=== PATIENT | female | born 1990 | race African-American/Black ===

== ENCOUNTER 2018-01-20 21:19 | Emergency (ER) | payer MEDICAID ==
[~2018-01-20] VITALS: Ht 165.1 cm; Wt 89.4 kg
[2018-01-20 21:51] VITALS: BP 132/94
[2018-01-20] MEDS ORDERED: cefTRIAXone SOD 1,000 MG VL IM ONE (23:45)
[2018-01-20] MEDS ORDERED: methylPREDNISolone SOD SUCC 125 MG/2 ML VL IM ONE (23:45)
[2018-01-21] MEDS ORDERED: TETANUS-DIPTH-ACEL PERTUSSIS 0.5ML SYRG IM ONE (00:15)
== END 2018-01-21 01:04 | disposition home or self-care (01) ==
LOC: ER 21:19
DX: L03.113 Cellulitis of right upper limb (principal); W57.XXXA Bitten or stung by nonvenomous insect and other nonvenomous arthropods, initial encounter; Y93.89 Activity, other specified; Y99.8 Other external cause status; Y92.89 Other specified places as the place of occurrence of the external cause
CPT/HCPCS: 90471; 90715; 96372; 99284; J0696; J2930

== ENCOUNTER 2018-04-29 20:08 | Emergency (ER) | payer SELFPAY ==
[~2018-04-29] VITALS: Ht 165.1 cm; Wt 93.0 kg
[2018-04-29 20:21] VITALS: BP 121/74
[2018-04-29 22:54] LABS: Urine Bacteria NONE SEEN /hpf (None Seen); Urine Blood Negative /uL (Negative); Urine Mucus FEW (None Seen); Urine Specific Gravity 1.029 (1.001-1.035); Urine WBC 1 /hpf (0 - 5)
== END 2018-04-30 00:52 | disposition home or self-care (01) ==
LOC: ER 20:08 → EDBD 20:08 → ER 04-30 00:41
DX: S09.90XA Unspecified injury of head, initial encounter (principal); X58.XXXA Exposure to other specified factors, initial encounter; Y93.89 Activity, other specified; Y99.8 Other external cause status; Y92.89 Other specified places as the place of occurrence of the external cause
CPT/HCPCS: 70450; 70486; 81001; 81025

== ENCOUNTER 2019-06-29 23:45 | Observation (INO) | payer MEDICAID ==
[~2019-06-29] VITALS: Ht 165.1 cm; Wt 104.3 kg
[2019-06-30] MEDS ORDERED: TERBUTALINE SULFATE 1 MG/ML 1ML VIAL SC SCH (00:45)
[2019-06-30] MEDS ORDERED: TERBUTALINE SULFATE 1 MG/ML 1ML VIAL SC ONE (00:46)
[2019-07-01] MEDS ORDERED: NIF10C GT (04:47)
== END 2019-06-30 01:35 | disposition home or self-care (01) | DRG 566 ==
LOC: LDRP 23:45
PROVIDERS: ADMIT Obstetrics & Gynecology; ATTEND Obstetrics & Gynecology
DX: O62.9 Abnormality of forces of labor, unspecified (principal); Z3A.29 29 weeks gestation of pregnancy
CPT/HCPCS: 59025; 81002; 96372; G0378; J3105

== ENCOUNTER 2019-07-01 02:38 | Observation (INO) | payer MEDICAID ==
[2019-07-01] MEDS ORDERED: NIF10C GT (04:47)
== END 2019-07-01 04:50 | disposition other institution (70) | DRG 563 ==
LOC: LDRP 02:38
PROVIDERS: ADMIT Specialist; ATTEND Specialist
DX: O60.03 Preterm labor without delivery, third trimester (principal); O99.89 Other specified diseases and conditions complicating pregnancy, childbirth and the puerperium; R10.9 Unspecified abdominal pain; R07.89 Other chest pain; Z3A.29 29 weeks gestation of pregnancy
CPT/HCPCS: 59025; 81002; G0378

== ENCOUNTER 2019-07-01 05:05 | Emergency (ER) | payer MEDICAID ==
[~2019-07-01] VITALS: Ht 165.1 cm; Wt 110.7 kg
[~2019-07-01 05:05] MED LIST: NIF10C GT
[2019-07-01 07:04] LABS: Basophils # (auto) 0 uL; Basophils % (auto) 0.5 % (0.0-2.0); Eosinophils # (auto) 0.1 uL; Eosinophils % (auto) 1.3 % (0.0-7.0); Hematocrit 34.1 % (36.0-46.0); Hemoglobin 11.2 g/dL (12.2-16.2); Lymphocytes # (auto) 1.6 uL; Lymphocytes % (auto) 16.8 % (10.0-50.0); Mean Corpuscular Hemoglobin 28.7 pg (28.0-32.0); Mean Corpuscular Hgb Conc. 32.9 g/dL (32.0-36.0); Mean Corpuscular Volume 87.3 fL (80.0-100.0); Monocytes # (auto) 0.9 uL; Neutrophils # (auto) 6.7 uL; Neutrophils % (auto) 71.4 % (37.0-80.0); Platelet Count (auto) 191 10^3/uL (140-450); Red Blood Cells 3.91 10^6/uL (4.0-5.20); Red Cell Distribution Width 14.2 % (11.8-14.3); White Blood Cell 9.4 10^3/uL (4.4-10.8)
[2019-07-01] MEDS ORDERED: SODIUM CHLORIDE 0.9% 1,000 ML IV ONE (07:04)
[2019-07-01] MEDS ORDERED: FOLIC ACID 1 MG TAB PO ONE (07:15)
[2019-07-01 07:23] LABS: Alanine Aminotransferase 22 U/L (13-56); Albumin 2.1 g/dL (3.4-5.0); Anion Gap 8 (5-15); Aspartate Aminotransferase 17 U/L (15-37); BUN/Creatinine Ratio 12.7; Blood Urea Nitrogen 8 mg/dL (7-18); Calcium 7.9 mg/dL (8.5-10.1); Carbon Dioxide 23 mmol/L (21-32); Chloride 106 mmol/L (98-107); GFR African American 143 mL/min; GFR Non-African American 118 mL/min; Glucose 80 mg/dL (74-106); Magnesium 1.8 mg/dL (1.6-2.6); Potassium 3.8 mmol/L (3.5-5.1); Sodium 137 mmol/L (136-145)
[2019-07-01 07:28] LABS: Alkaline Phosphatase 75 U/L (45-117); Bilirubin, Total 0.7 mg/dL (0.2-1.0)
[2019-07-01 07:29] LABS: INR 0.99 (0.9-1.15); Partial Thromboplastin Time 28.8 sec (23.64-32.05)
[2019-07-01 08:00] VITALS: BP 116/69
== END 2019-07-01 10:12 | disposition home or self-care (01) ==
LOC: ER 05:05
DX: O26.893 Other specified pregnancy related conditions, third trimester (principal); O99.343 Other mental disorders complicating pregnancy, third trimester; E86.0 Dehydration; F41.9 Anxiety disorder, unspecified; Z3A.30 30 weeks gestation of pregnancy
CPT/HCPCS: 36415; 80053; 83735; 84484; 84702; 85025; 85610; 85730; 93005; 96360; 96361; 99284; J7030

== ENCOUNTER 2019-07-05 09:10 | Observation (INO) | payer MEDICAID ==
[2019-07-05] MEDS ORDERED: PREN27TA7 PO (10:34)
== END 2019-07-05 11:05 | disposition home or self-care (01) | DRG 566 ==
LOC: LDRP 09:10
PROVIDERS: ADMIT Obstetrics & Gynecology; ATTEND Obstetrics & Gynecology
DX: O24.410 Gestational diabetes mellitus in pregnancy, diet controlled (principal); O60.03 Preterm labor without delivery, third trimester; Z3A.30 30 weeks gestation of pregnancy
CPT/HCPCS: 59025; 76818; 81002; G0378

== ENCOUNTER 2019-07-14 09:05 | Observation (INO) | payer MEDICAID ==
[~2019-07-14 09:05] MED LIST changes: +PREN27TA7 PO
== END 2019-07-14 10:55 | disposition home or self-care (01) | DRG 563 ==
LOC: LDRP 09:05
PROVIDERS: ADMIT Obstetrics & Gynecology; ATTEND Obstetrics & Gynecology
DX: O60.03 Preterm labor without delivery, third trimester (principal); O24.419 Gestational diabetes mellitus in pregnancy, unspecified control; O26.893 Other specified pregnancy related conditions, third trimester; R51 Headache; Z3A.31 31 weeks gestation of pregnancy
CPT/HCPCS: 59025; 76818; 81002; 82948; 82962; G0378

== ENCOUNTER 2021-06-07 04:54 | Emergency (ER) | payer MEDICAID ==
[~2021-06-07] VITALS: Ht 165.1 cm; Wt 103.4 kg
[2021-06-07] MEDS ORDERED: IBUPROFEN 600 MG TAB PO ONE (05:15)
[2021-06-07 06:46] LABS: Urine Bacteria FEW /hpf (None Seen); Urine Blood Negative /uL (Negative); Urine Mucus FEW (None Seen); Urine Specific Gravity 1.031 (1.001-1.035); Urine WBC 11 /hpf (0 - 5)
[2021-06-07 07:27] LABS: Basophils # (auto) 0 10 ^3/uL (0-0.2); Basophils % (auto) 0.8 % (0.0-2.0); Eosinophils # (auto) 0.2 10 ^3/uL (0-0.8); Eosinophils % (auto) 3.1 % (0.0-7.0); Hematocrit 38.4 % (36.0-46.0); Hemoglobin 12.8 g/dL (12.2-16.2); Lymphocytes # (auto) 1.6 10 ^3/uL (0.4-5.4); Mean Corpuscular Hgb Conc. 33.3 g/dL (32.0-36.0); Mean Corpuscular Volume 84.2 fL (80.0-100.0); Monocytes # (auto) 0.7 10 ^3/uL (0-1.3); Monocytes % (auto) 13.6 % (0.0-12.0); Neutrophils # (auto) 2.9 10 ^3/uL (1.6-8.6); Neutrophils % (auto) 52.5 % (37.0-80.0); Red Blood Cells 4.56 10^6/uL (4.0-5.20); Red Cell Distribution Width 13.5 % (11.8-14.3); White Blood Cell 5.4 10^3/uL (4.4-10.8)
[2021-06-07 07:44] LABS: Albumin 3.4 g/dL (3.4-5.0); Calcium 8.9 mg/dL (8.5-10.1); Potassium 4.2 mmol/L (3.5-5.1)
[2021-06-07 07:46] VITALS: BP 117/68
[2021-06-07 07:48] LABS: BUN/Creatinine Ratio 16.1; Bilirubin, Total 0.4 mg/dL (0.2-1.0); Total Protein 7.4 g/dL (6.4-8.2)
== END 2021-06-07 09:15 | disposition home or self-care (01) ==
LOC: ER 04:54
DX: N83.202 Unspecified ovarian cyst, left side (principal); N39.0 Urinary tract infection, site not specified; Z79.899 Other long term (current) drug therapy
CPT/HCPCS: 36415; 76856; 80053; 81001; 81025; 83690; 84702; 85025

== ENCOUNTER 2021-06-13 20:39 | Emergency (ER) | payer MEDICAID ==
[~2021-06-13] VITALS: Ht 170.2 cm; Wt 99.8 kg
[2021-06-13 22:23] VITALS: BP 110/60
[2021-06-13] MEDS ORDERED: KETOROLAC TROMETH 60MG/2ML VIAL IM ONE (22:30)
== END 2021-06-14 00:12 | disposition home or self-care (01) ==
LOC: EDBD 20:39 → ER 20:43
DX: G43.909 Migraine, unspecified, not intractable, without status migrainosus (principal); E66.9 Obesity, unspecified; Z68.34 Body mass index [BMI] 34.0-34.9, adult
CPT/HCPCS: 96372; 99283; J1885

== ENCOUNTER 2022-10-05 10:43 | Emergency (ER) | payer MEDICAID ==
[~2022-10-05] VITALS: Ht 152.4 cm; Wt 110.0 kg
[2022-10-05 11:08] LABS: Basophils # (auto) 0 10 ^3/uL (0-0.2); Eosinophils # (auto) 0.2 10 ^3/uL (0-0.8); Eosinophils % (auto) 3.4 % (0.0-7.0); Hemoglobin 11.6 g/dL (12.2-16.2); Lymphocytes # (auto) 1.6 10 ^3/uL (0.4-5.4); Lymphocytes % (auto) 33.2 % (10.0-50.0); Mean Corpuscular Hemoglobin 27.2 pg (28.0-32.0); Mean Corpuscular Hgb Conc. 32.3 g/dL (32.0-36.0); Monocytes # (auto) 0.6 10 ^3/uL (0-1.3); Monocytes % (auto) 11.7 % (0.0-12.0); Neutrophils # (auto) 2.4 10 ^3/uL (1.6-8.6); Neutrophils % (auto) 50.7 % (37.0-80.0); Red Blood Cells 4.29 10^6/uL (4.0-5.20); White Blood Cell 4.7 10^3/uL (4.4-10.8)
[2022-10-05 11:22] LABS: Albumin 3.2 g/dL (3.4-5.0); BUN/Creatinine Ratio 15.5; Calcium 8.4 mg/dL (8.5-10.1); Magnesium 1.8 mg/dL (1.6-2.6); Potassium 4.1 mmol/L (3.5-5.1)
[2022-10-05 11:25] LABS: Bilirubin, Total 0.6 mg/dL (0.2-1.0); Total Protein 6.3 g/dL (6.4-8.2)
[2022-10-05 13:40] VITALS: BP 121/82
== END 2022-10-05 13:46 | disposition home or self-care (01) ==
LOC: EDBD 10:43 → ER 10:43
DX: R07.89 Other chest pain (principal); R51.9 Headache, unspecified; R10.2 Pelvic and perineal pain; Z79.899 Other long term (current) drug therapy
CPT/HCPCS: 36415; 70450; 71046; 80053; 83735; 84484; 84702; 85025; 93005

== ENCOUNTER 2023-02-15 19:39 | Emergency (ER) | payer MEDICAID ==
[~2023-02-15] VITALS: Ht 165.1 cm; Wt 110.8 kg
[2023-02-16] MEDS ORDERED: CEPH500C PO (00:33)
[2023-02-16] MEDS ORDERED: KETOROLAC TROMETH 30 MG/ML 1ML VIAL IM ONE (00:45)
[2023-02-16 00:49] VITALS: BP 133/80
== END 2023-02-16 00:48 | disposition home or self-care (01) ==
LOC: ER 19:39
DX: S80.862A Insect bite (nonvenomous), left lower leg, initial encounter (principal); W57.XXXA Bitten or stung by nonvenomous insect and other nonvenomous arthropods, initial encounter; Y93.89 Activity, other specified; Y92.89 Other specified places as the place of occurrence of the external cause; Y99.8 Other external cause status
CPT/HCPCS: 96372; 99283; J1885

== ENCOUNTER 2023-02-21 00:18 | Emergency (ER) | payer MEDICAID ==
[~2023-02-21] VITALS: Ht 165.1 cm; Wt 110.0 kg
[~2023-02-21 00:18] MED LIST changes: +CEPH500C PO
[2023-02-21] MEDS ORDERED: KETOROLAC TROMETH 60MG/2ML VIAL IM ONE (02:00)
[2023-02-21] MEDS ORDERED: CYCL-837 PO (02:06)
[2023-02-21] MEDS ORDERED: IBUP-1456 PO (02:06)
[2023-02-21 02:43] VITALS: BP 124/91
== END 2023-02-21 02:30 | disposition home or self-care (01) ==
LOC: ER 00:18
DX: S16.1XXA Strain of muscle, fascia and tendon at neck level, initial encounter (principal); R51.9 Headache, unspecified; Z32.02 Encounter for pregnancy test, result negative; X58.XXXA Exposure to other specified factors, initial encounter; Y93.89 Activity, other specified; Y92.89 Other specified places as the place of occurrence of the external cause; Y99.8 Other external cause status
CPT/HCPCS: 81002; 81025; 96372; 99283; J1885